=== PATIENT | female | born 1965 | race African-American/Black ===

== ENCOUNTER 2021-09-17 13:04 | Emergency (ER) | payer OTHER ==
[2021-09-17 13:24] VITALS: BP 115/77; PULSE 100; TEMP 97.8; BMI 25.7
== END 2021-09-17 17:10 | disposition home or self-care (01) ==
LOC: JER 13:04
DX: B34.9 Viral infection, unspecified (principal)
CPT/HCPCS: 87804; 93005; 93010; 99284-25; C9803-CS; U0003; U0005